=== PATIENT | female | born 1980 | race Caucasian/White ===

== ENCOUNTER 2017-06-10 10:31 | Day surgery (SDC) | payer BC ==
[~2017-06-10 10:31] MED LIST: Buffered Lidocaine 0.9% SYRIN* 5 ML/SYR SYRINGE INTRADERM ONE; Dexamethasone TAB* 4 MG PO ONE; Famotidine IV* 10 MG/ML 2 ML (20 mg) IV ONE; Ketorolac INJ* 30 MG/ML 1 ML VIAL ONE; Lidocaine 2% PF * 5 ML VIAL ONE; Midazolam* 1 MG/ML 2 ML VIAL (2 MG) IV ONE; Midazolam* 1 MG/ML 2 ML VIAL (2 MG) ONE; Ondansetron INJ* 2 MG/ML VIAL ONE; Propofol* 10 MG/ML 20 ML BTL IV PUSH ONE; Rocuronium* 10 MG/ML VIAL ONE; Sodium Citrate/Citric Acid* 15 ML UDC PO ONE; Succinylcholine* 20 MG/ML 10 ML VIAL ONE; fentaNYL* 50 MCG/ML 2 ML VIAL (100 MCG VIAL) ONE
[2017-06-10] MEDS ORDERED: Famotidine IV* 10 MG/ML 2 ML (20 mg) ONE (10:43)
[2017-06-10] MEDS ORDERED: Buffered Lidocaine 0.9% SYRIN* 5 ML/SYR SYRINGE ONE (10:43)
[2017-06-10] MEDS ORDERED: Dexamethasone TAB* 4 MG ONE (10:43)
[2017-06-10] MEDS ORDERED: Sodium Citrate/Citric Acid* 15 ML UDC ONE (10:43)
[2017-06-10 11:26] LABS: Hematocrit 42 % (35-47); Hemoglobin 14.3 g/dl (12.0-16.0); Mean Corpuscular HGB Conc 35 g/dl (31-36); Mean Corpuscular Hemoglobin 32 pg (27-31); Mean Corpuscular Volume 93 fL (80-97); Mean Platelet Volume 7 um3 (7.4-10.4); Red Blood Count 4.49 10^6/ul (4.0-5.4); Red Cell Distribution Width 13 % (10.5-15); White Blood Count 15.6 10^3/ul (3.5-10.8)
[2017-06-10] MEDS ORDERED: Levalbuterol 0.63MG/3ML NEB* UNIT OF USE INH PRN (12:05)
[2017-06-10] MEDS ORDERED: fentaNYL* 50 MCG/ML 2 ML VIAL (100 MCG VIAL) IV PRN (12:05)
[2017-06-10] MEDS ORDERED: Ibuprofen TAB* 600 MG PO PRN (12:05)
[2017-06-10] MEDS ORDERED: Acetaminophen TAB* 325 MG PO PRN (12:05)
[2017-06-10] MEDS ORDERED: HYDROmorphone INJ* 1 MG/ML CARPUJECT SYRINGE IV PRN (12:05)
[2017-06-10] MEDS ORDERED: Ondansetron INJ* 2 MG/ML VIAL IV PRN (12:05)
[2017-06-10] MEDS ORDERED: oxyCODONE/Acetamin 5/325 MG* TAB PO PRN (12:05)
[2017-06-10] MEDS ORDERED: DiMENhydriNATE IV* 50 MG/ML VIAL IV PUSH PRN (12:05)
[2017-06-10] MEDS ORDERED: Scopolamine 1.5 mg* PATCH TRANSDERM PRN (12:05)
[2017-06-10] MEDS ORDERED: oxyCODONE TAB* 5 MG TAB PO PRN (12:05)
[2017-06-10] MEDS ORDERED: Propofol* 500 MG/50 ML BTL ONE (12:45)
[2017-06-10 14:17] VITALS: BP 122/93
--- NOTE | 2017-06-11 02:26 | OP ---
OPERATIVE REPORT: DATE OF OPERATION: 06/10/17 - [facility] DATE OF : 80 SURGEON: Jose Ferro MD ANESTHESIOLOGIST: Eulalia Starks MD ANESTHESIA: General. PRE-OP DIAGNOSIS: Missed . POST-OP DIAGNOSIS: Missed . OPERATIVE PROCEDURE: D and C. COMPLICATIONS: None. FINDINGS: On exam under anesthesia, uterus is 12-week size. Cervix, vagina, and vulva appeared normal. DESCRIPTION OF PROCEDURE: Patient identified, procedure identified as D and C. The patient was taken to the operating room, prepped and draped in the usual fashion in dorsal lithotomy position under general anesthesia. Two single- tooth tenaculums were placed on the anterior lip of the cervix. The cervix was easily dilated up to a #33 Timmons dilator. The #12 suction curette was inserted and suction curettage performed. The sharp curette was inserted and copious tissue and fluid have been taken with the vacuum. The sharp curette was inserted and sharp curettage performed until the gritty sensation was felt throughout the circumference. Moderate amounts of tissue obtained. The polyp forceps were inserted and no further tissue was obtained using this. The suction curette was inserted one more time and no further tissue was obtained. At the end of the procedure, a gritty sensation felt throughout the circumference. All instruments were removed from the vagina. The patient returned to recovery room in stable condition. All sponge and instrument counts were correct. [id number]/CPS #: [id number] MTDD
[2017-06-13] MEDS ORDERED: Scopolomine PATCH Remove* 1 NOTE MISC PATCH OFF ONE (12:06)
== END 2017-06-10 14:45 | disposition home or self-care (01) ==
LOC: OR 10:31
PROVIDERS: ATTEND Obstetrics & Gynecology
DX: O02.1 Missed abortion (principal); F41.9 Anxiety disorder, unspecified; G43.909 Migraine, unspecified, not intractable, without status migrainosus
CPT/HCPCS: 36415; 85025; 86850; 86900; 86901; 88305; A9270-GY; J0330; J1885; J2250; J2405; J2704; J3010; J8540

== ENCOUNTER 2018-07-06 02:45 | Inpatient (IN) | payer BC ==
[2018-07-06] MEDS ORDERED: Oxytocin in LR* 20 UNITS/1,000 ML BAG IVPB ONE (02:54)
[2018-07-06 03:08] LABS: Hematocrit 37 % (35-47); Hemoglobin 12.6 g/dl (12.0-16.0); Mean Corpuscular HGB Conc 34 g/dl (31-36); Mean Corpuscular Hemoglobin 31 pg (27-31); Mean Corpuscular Volume 91 fL (80-97); Mean Platelet Volume 8.5 fL (7.4-10.4); Platelet Count 277 10^3/ul (150-450); Red Blood Count 4.04 10^6/ul (4.00-5.40); Red Cell Distribution Width 14 % (10.5-15); White Blood Count 11.7 10^3/ul (3.5-10.8)
--- NOTE | 2018-07-06 03:22 | HP ---
General Information - Reason for Visit Contractions started earlier yesterday and were irregular. Was able to sleep but awoke about 0130 with more intense contractions. Now approx Q 4-6 min. - General Information Maternal Age: 37 Grav: 3 Para: 1 SAB: 1 IEA: 0 Estimated Due Date: 07/05/18 Determined By: LMP Maternal Blood Type and Rh: O Positive - Results this Serology/RPR Result: Non-Reactive Rubella Result: Immune HBsAg Result: Negative HIV Result: Negative GBS Culture Result: Negative Past Medical History Delivery History: Hx Complicated Vaginal Delivery Delivery History Comment: SVB 2008 with PPH 700ml Pertinent Past Medical History: See Records Past Medical History Comment: Anxiety Migraine Seasonal allergies HTN Pertinent Past Surgical History: See Records Past Surgical History Comment: [place] teeth 1998 Pertinent Family History: Non-Contributory - D Family History Comment: Diabetes Obesity SC Ovarian Ca Brain aneurysm Anxiety Prostate Ca Skin Ca Alzheimer's Down syndrome - Antepartal Records Antepartal Records: Reviewed, Complicated by: - Possible GHTN vs "white coat syndrome" Review of Systems Constitutional: Uncomfortable CV Complaint: No Respiratory: Shortness of Breath: No Gastrointestinal: No Nausea/Vomiting, Soft Stool Genitourinary: No Dysuria, No Bleeding, No Leaking Fluid Musculoskeletal: Contractions Neurological: No Headache, No Visual Changes Movement: Normal Exam Allergies/Adverse Reactions: Allergies No Known Allergies Allergy (Verified 07/06/18 03:05) BP 140/91 T 98.6 HR 80 RR 18 Lab Values - Entire Visit: Laboratory Tests 07/06/18 07/06/18 02:57 02:57 WBC 11.7 H RBC 4.04 Hgb 12.6 Hct 37 MCV 91 MCH 31 MCHC 34 RDW 14 Plt Count 277 MPV 8.5 Blood Type O Positive - Measurements Height: 5 ft 1 in Weight: 145 lb Weight in lbs: 145.813980 Body Mass Index (BMI): 27.3 Pre- Weight: 114 lb Weight Gained This : 31 lbs and 0 ozs - Exam Breast: Breast Exam Deferred CVA: No CVA Tenderness Extremities: No Edema Heart: Normal Rhythm/Heart Sounds HEENT: No Significant Findings Lungs: Clear Bilaterally Rectal: Rectal Exam Deferred Reflexes: DTR 2+, - - no clonus Thyroid: - - exam normal @ entry to [facility] - Abdominal Exam Abdomen Exam: Non-Tender, Fundal Height Consistent with Dates - Ultrasound/Biophysical Profile Ultrasound Status: Not Done Targeted Exam Findings See L&D Outpatient Visit Provider Note for Findings: N/A Estimated Weight: 8lb Cervical Exam: 6cm Effacement: 90% Station: 0 Presenting Part: Vertex Membrane Status: Bulging Bleeding/Discharge: None EFM Findings - External Monitor Findings Baseline Heart Rate: 125 External Monitor Findings: Accelerations Present, No Pattern of Variable or Late Decelerations, Variability Moderate Contractions: Regular, Strong, 45-90 Seconds Contraction Frequency: Q 3-4 min Assessment/Plan - Assessment IUP @ 40+1 weeks gestation in active labor. IBOW. No evidence acidemia - Plan Plan: Admit - Anticipate Vaginal Delivery Plan Comment: Admit to L&D. Initiate IV due to hx of PPH. Patient desires unmedicated , would like to try tub. Anticipate SVB. - Date/Time of Admission Date of Admission: 07/06/18 Time of Admission: 03:02
[2018-07-06] MEDS ORDERED: Dibucaine 1% 28.35 GM TUBE PR PRN (07:09)
[2018-07-06] MEDS ORDERED: Acetaminophen TAB* 325 MG PO PRN (07:09)
[2018-07-06] MEDS ORDERED: Glycerin ADULT SUPP PR PRN (07:09)
[2018-07-06] MEDS ORDERED: Witch Hazel PAD* JAR TOPICAL PRN (07:09)
--- NOTE | 2018-07-06 07:24 | PROCNOTE ---
[facility] OB: Delivery Note - Nursery Level of Nursery: Regular/Bedside - Perineum Perineal Injury: 1st Degree Perineal Repair: By Delivering Practioner - Events Delivery Events of Note: None Apply - Additional Delivery Notes Additional Delivery Notes: Patient admitted in active labor at 40+1 with progression to complete. Patient coached to push in various positions, pushed to delivery of head on hands and knees. LOL 4'12", pushed 33 min. Baby born OA to MICA @ 0633, shoulders followed with maternal efforts. Loose nuchal unwrapped after delivery. Baby with spontaneous respirations, HR >110. Mother turned over and baby to abdomen. Apgars 8,9. Cord doubly clamped and cut by CNM once pulsations ceased. Placenta delivered with gentle cord traction @ 0642. Noted to have 3VC, membrane appears complete, small calcifications. Fundus firm to massage, scant bleeding noted. Baby [id number], to initiate . Name MARLON.
[2018-07-06] MEDS: Docusate CAP* 100 MG PO SCH ×3 (11:36→20:40)
[2018-07-06] MEDS: Ibuprofen TAB* 600 MG PO PRN (12:47)
[2018-07-07] MEDS: Ibuprofen TAB* 600 MG PO PRN ×2 (04:28→15:47)
[2018-07-07 06:45] LABS: ABS Basophils 0 10^3/ul (0-0.2); ABS Eosinophils 0.1 10^3/ul (0-0.6); ABS Lymphocytes 2.6 10^3/ul (1.0-4.8); ABS Monocytes 0.9 10^3/ul (0-0.8); ABS Nucleated RBC 0 10^3/ul; Eosinophil % 0.4 % (0-6); Hematocrit 35 % (35-47); Hemoglobin 11.8 g/dl (12.0-16.0); Mean Corpuscular HGB Conc 34 g/dl (31-36); Mean Corpuscular Hemoglobin 31 pg (27-31); Mean Corpuscular Volume 91 fL (80-97); Mean Platelet Volume 8.5 fL (7.4-10.4); Nucleated Red Blood Cells % 0; Platelet Count 214 10^3/ul (150-450); Red Blood Count 3.83 10^6/ul (4.00-5.40); Red Cell Distribution Width 14 % (10.5-15); White Blood Count 13.7 10^3/ul (3.5-10.8)
[2018-07-07 08:02] VITALS: BP 128/88
[2018-07-07] MEDS ORDERED: Ferrous Gluconate TAB* 324 MG TAB PO SCH (09:00)
[2018-07-07] MEDS: Docusate CAP* 100 MG PO SCH ×2 (10:58→15:47)
== END 2018-07-07 17:49 | disposition home or self-care (01) | DRG 560 ==
LOC: MCHOBOUT 02:45 → MCHOB 03:02
PROVIDERS: ADMIT Midwife; ATTEND Midwife
PROC: 10E0XZZ Delivery of Products of Conception, External Approach (ICD-10-PCS; principal; 2018-07-06)
PROC: 4A1HXCZ Monitoring of Products of Conception, Cardiac Rate, External Approach (ICD-10-PCS; 2018-07-06)
PROC: 10907ZC Drainage of Amniotic Fluid, Therapeutic from Products of Conception, Via Natural or Artificial Opening (ICD-10-PCS; 2018-07-06)
PROC: 0HQ9XZZ Repair Perineum Skin, External Approach (ICD-10-PCS; 2018-07-06)
DX: O48.0 Post-term pregnancy (principal); O22.43 Hemorrhoids in pregnancy, third trimester; Z37.0 Single live birth; Z3A.40 40 weeks gestation of pregnancy; O70.0 First degree perineal laceration during delivery; O69.81X0 Labor and delivery complicated by cord around neck, without compression, not applicable or unspecified; O43.893 Other placental disorders, third trimester
CPT/HCPCS: 36415; 85025; 85027; 86850; 86900; 86901; A9270-GY